=== PATIENT | female | born 2000 | race Caucasian/White ===

== ENCOUNTER 2023-01-31 08:33 | Outpatient (CLI) | payer OTHER, SELFPAY | END 2023-01-31 08:34 | disposition home or self-care (01) | PROVIDERS: Visit Provider Registered Nurse | DX: E66.01 Morbid (severe) obesity due to excess calories (principal); N94.6 Dysmenorrhea, unspecified; Z13.1 Encounter for screening for diabetes mellitus | CPT/HCPCS: 82670; 83001; 83498; 84146; 84403; 84443; 84703 ==

== ENCOUNTER 2023-07-08 12:45 | Outpatient (CLI) | payer OTHER, SELFPAY ==
--- NOTE | 2023-07-08 13:00 | CRLHL7_ITS ---
For Patients: As a result of the Century Cures Act, medical imaging exams and procedure reports are released immediately into your electronic medical record. You may view this report before your referring provider. If you have questions, please contact your health care provider. INDICATION: First trimester scan, establish dates. COMPARISON: None. TECHNIQUE: Real-time banks-scale imaging of the pelvis was performed. FINDINGS: Intrauterine gestational sac is present measuring 6.0 millimeters, 5 weeks 1 day. No pole or yolk sac. Subchorionic hemorrhage measuring 10 x 2 x 10 millimeters. Corpus luteal cyst right ovary measuring 2.2 x 1.8 x 2.1 cm. Normal left ovary. No pelvic free fluid. IMPRESSION: Intrauterine gestational sac measuring 5 weeks 1 day. No pole or yolk sac. 1 cm fundal subchorionic hemorrhage. Sonographic findings are not concordant with the clinical age of 9 weeks 4 days. Follow-up in 2-3 weeks may be helpful as indicated. Dictated by Luke Arizmendi MD @ 07/09/2023 10:08:47 AM (Electronically Signed)
== END 2023-07-08 12:46 | disposition home or self-care (01) ==
LOC: US 12:46
PROVIDERS: Visit Provider Registered Nurse
DX: Z34.91 Encounter for supervision of normal pregnancy, unspecified, first trimester (principal); O20.9 Hemorrhage in early pregnancy, unspecified; Z3A.09 9 weeks gestation of pregnancy
CPT/HCPCS: 76817; 84702; 86850; 86900; 86901

== ENCOUNTER 2023-07-10 08:30 | Outpatient (CLI) | payer OTHER, SELFPAY | END 2023-07-10 08:31 | disposition home or self-care (01) | LOC: NFLDREF 07-14 06:49 | PROVIDERS: Visit Provider Registered Nurse | DX: Z34.90 Encounter for supervision of normal pregnancy, unspecified, unspecified trimester (principal) | CPT/HCPCS: 84702 ==

== ENCOUNTER 2023-07-22 13:40 | Outpatient (CLI) | payer OTHER, SELFPAY ==
--- NOTE | 2023-07-22 14:00 | CRLHL7_ITS ---
For Patients: As a result of the Cures Act, medical imaging exams and procedure reports are released immediately into your electronic medical record. You may view this report before your referring provider. If you have questions, please contact your health care provider. INDICATION: First trimester scan, establish dates. TECHNIQUE: Real-time banks-scale imaging of the pelvis was performed. FINDINGS: Sonographic imaging demonstrates a single living intrauterine gestation. The embryo demonstrates a regular cardiac rate measuring 125 beats per minute. The embryo`s crown-rump length measurement of 0.8 cm corresponds to a gestational age of 6 weeks 5 days with a sonographic due date of 03/11/24. There is a normal-appearing yolk sac. IMPRESSION: Normal first trimester OB ultrasound exam. Gestational age calculated at 6 weeks 5 days with a sonographic due date of 03/11. Dictated by Lisette Graf MD @ 07/24/2023 7:20:45 AM (Electronically Signed)
== END 2023-07-22 13:41 | disposition home or self-care (01) ==
LOC: US 13:41
PROVIDERS: Visit Provider Registered Nurse
DX: Z34.91 Encounter for supervision of normal pregnancy, unspecified, first trimester (principal); Z3A.01 Less than 8 weeks gestation of pregnancy
CPT/HCPCS: 76817; 86703; 86706; 86803; 87086; 87340; 87491; 87591

== ENCOUNTER 2023-07-22 14:52 | Outpatient (CLI) | payer OTHER, SELFPAY ==
[2023-07-22 22:47] LABS: Chlamydia DNA Amplified* NOT DETECTED (No Detected); GC DNA Amplified* NOT DETECTED (No Detected)
== END 2023-07-22 14:53 | disposition home or self-care (01) ==
PROVIDERS: Visit Provider Registered Nurse
DX: Z34.91 Encounter for supervision of normal pregnancy, unspecified, first trimester (principal); Z3A.01 Less than 8 weeks gestation of pregnancy
CPT/HCPCS: 86592; 86703; 86704; 86706; 86762; 86787; 86803; 87086; 87340; 87491; 87591

== ENCOUNTER 2023-10-08 14:03 | Outpatient (CLI) | payer OTHER, SELFPAY | END 2023-10-08 14:04 | disposition home or self-care (01) | LOC: NFLDREF 14:04 | PROVIDERS: Visit Provider Registered Nurse | DX: Z34.92 Encounter for supervision of normal pregnancy, unspecified, second trimester (principal); R00.0 Tachycardia, unspecified; Z3A.17 17 weeks gestation of pregnancy | CPT/HCPCS: 84443 ==

== ENCOUNTER 2023-11-21 15:11 | Outpatient (CLI) | payer OTHER, SELFPAY | END 2023-11-21 15:12 | disposition home or self-care (01) | PROVIDERS: Visit Provider Obstetrics & Gynecology | DX: O16.3 Unspecified maternal hypertension, third trimester (principal) | CPT/HCPCS: 82565; 82570; 84156; 84450; 84460; 84520 ==

== ENCOUNTER 2023-12-19 11:04 | Outpatient (CLI) | payer OTHER, SELFPAY | END 2023-12-19 11:05 | disposition home or self-care (01) | PROVIDERS: Visit Provider Obstetrics & Gynecology | DX: O10.013 Pre-existing essential hypertension complicating pregnancy, third trimester (principal); Z11.3 Encounter for screening for infections with a predominantly sexual mode of transmission | CPT/HCPCS: 82565; 82570; 84156; 84450; 84460; 84520; 84550; 86592 ==

== ENCOUNTER 2023-12-23 13:42 | Outpatient (CLI) | payer OTHER, SELFPAY ==
--- NOTE | 2023-12-23 14:00 | US_ITS ---
Patient: SOHA BOWEN Facility:?[facility] R[facility] Patient ID:?[id number] Site Patient ID:?[id number]. Site :?2002 Study:?US-OB Pelvis BPP w/growth-12/23/2023 2:53:17 PM Ordering Physician:MAC Final Report: INDICATION: Hypertension, check growth. JOMAR by LMP: 07/22/24. GA: 28w, 5d. Single. CERVIX: Not visualized. POSITIONING: Vertex. AMNIOTIC FLUID: 3.2 cm SDP (N: Increase 2 x 1 cm). BIOPHYSICAL PROFILE: Total score: 8/8. Gross body movements: 2. tone: 2. Respiratory activity: 2. Amniotic fluid: 2 (SDP N: Increase 2 x 1 cm). PLACENTA: Technique: Transabdominal. PLACENTA POSITION: Anterior. DOPPLER: heart rate: 152 bpm. Biometry: BPD: 7.9 cm, 31w, 5d, >97percent. HC: 28.8 cm, 31w, 4d, 92 percent. AC: 25.9 cm, 30w, 0d, 80 percent. FL: 5.5 cm, 29w, 1d, 48 percent. FL/AC ratio: 21 percent. HC/AC ratio: 1.1. EFW: 1494 g. Weight: 3 lbs, 5 oz. age by this US: 30w, 4d. JOMAR by this US: 02/27/24. Percentile by JOMAR: 84 percent. IMPRESSION: 1. Normal biophysical profile score of 8/8. 2. Estimated weight is 84th percentile. 3. BPD greater than 97th percentile. Head circumference 92nd percentile. Flo Fall M.D. Body/Diagnostic Radiologist [email or web address] MADAN/miguel D& Transcribed: 12:17 p.m. SP/Dictated by: Flo Fall MD @ 12/24/2023 9:09:00 AM Signed by:Lovely Fall MD @12/24/2023 12:25:59 PM (Electronic Signature)
== END 2023-12-23 13:43 | disposition home or self-care (01) ==
LOC: US 13:43
PROVIDERS: Visit Provider Obstetrics & Gynecology
DX: O10.913 Unspecified pre-existing hypertension complicating pregnancy, third trimester (principal); Z3A.28 28 weeks gestation of pregnancy
CPT/HCPCS: 76816; 76819

== ENCOUNTER 2024-01-16 13:46 | Outpatient (CLI) | payer OTHER, SELFPAY ==
--- NOTE | 2024-01-16 14:00 | US_ITS ---
Patient: SOHA BOWEN Facility:?[facility] RIS Patient ID:?[id number] Site Patient ID:?[id number]. Site :?2002 Study:?US-OB Pelvis OB F/U and BPP-01/16/2024 2:49:12 PM Ordering Physician:Kath Arriaga Final Report: INDICATION: Hypertension TECHNIQUE: Real time banks scale imaging of the fetus was performed. COMPARISON: 12/23/2023 FINDINGS: Sonographic imaging demonstrates a single living intrauterine gestation. Fetus demonstrates a regular cardiac rate of 154 beats per minute. Fetus has a vertex position. The placenta lies anteriorly. Amniotic fluid volume appears normal and there is a single deepest pocket of 5.5 cm. The estimated weight is 2501gm which lies at the greater than 97th %. On the prior OB ultrasound dated 12/23/2023 the estimated weight was at the 84th percentile. BPD greater than 97th percentile. HC 95th percentile. AC 96th percentile. FL 95th percentile. The fetus was active and demonstrated normal breathing movements. There was normal flexion and extension of the trunk and extremities. IMPRESSION: Normal biophysical profile score 8/8. Sonographic gestational age 35 weeks 0 days and a sonographic due date of 02/20/2024. Sonographic age 20 days ahead of the clinical age. Estimated weight greater than 97th percentile. Abdominal circumference 96th percentile. BPD greater than 97th percentile. Dictated by Luke Arizmendi MD @ 01/19/2024 6:29:07 AM Signed by:?Luke Arizmendi MD @01/19/2024 6:29:07 AM (Electronic Signature)
== END 2024-01-16 13:47 | disposition home or self-care (01) ==
LOC: US 13:46
PROVIDERS: Visit Provider Obstetrics & Gynecology
DX: O16.3 Unspecified maternal hypertension, third trimester (principal); O36.63X0 Maternal care for excessive fetal growth, third trimester, not applicable or unspecified; Z3A.35 35 weeks gestation of pregnancy
CPT/HCPCS: 76816; 76819

== ENCOUNTER 2024-02-01 20:16 | Outpatient (CLI) | payer OTHER, SELFPAY ==
[2024-02-01 20:37] VITALS: BP 123/71; PULSE 101
[2024-02-01 20:38] VITALS: PULSE 107; O2SAT 98
[2024-02-01 20:43] VITALS: PULSE 107; O2SAT 98
[2024-02-01 20:54] VITALS: BP 117/62; PULSE 99
[2024-02-01 21:08] VITALS: BP 118/57; PULSE 96
[2024-02-01 21:23] VITALS: BP 113/58; PULSE 99
--- NOTE | 2024-02-01 22:24 | PC.OBNST ---
NST Note NST Note Start: 02/01/24 20:12 Freq: ONCE Status: Active Protocol: Document 02/01/24 22:23 BRISA (Rec: 02/01/24 22:24 BRISA [id number]) NST Note 1 Para (# of births) 0 EDC 03/11/24 Gestational Age In Weeks & Days 34 Weeks & 3 Days Patient Presented with Complaint(s) of Decreased movement,Other Other Complaints BP 140/90 at home. Reactive Yes RN Maru Elmore RN Date 02/01/24 Reactive Yes CRISSY Rider RN Date 02/01/24 OB NST charge Yes Complete NST Note via Write Note Yes The provider's electronic signature indicates the NST is reactive/appropriate for gestational age. *Note to provider: If an addendum is required, open the patient's chart and click on the note under the Nurse/Allied Health tab.
== END 2024-02-01 21:45 | disposition home or self-care (01) ==
LOC: OB OUT 20:17 → OB 20:17
PROVIDERS: Visit Provider Obstetrics & Gynecology
DX: O36.8130 Decreased fetal movements, third trimester, not applicable or unspecified (principal); Z3A.34 34 weeks gestation of pregnancy
CPT/HCPCS: 59025; G0463

== ENCOUNTER 2024-02-10 17:29 | Outpatient (CLI) | payer OTHER, SELFPAY ==
[2024-02-10] VITALS (29 sets, daily range): BP systolic 118–127; BP diastolic 62–73; PULSE 103–125; RESP 18; TEMP 36.8; O2SAT 92–97
[2024-02-10 18:26] LABS: Appearance Urine Cloudy (Clear); Bilirubin Urine Negative (Negative); Blood Urine 1+ (Negative); Color Urine Yellow (Yellow); Glucose Urine Negative (Negative); Ketones Urine Negative (Negative); Leukocyte Esterase Urine Trace (Negative); Nitrite Urine Negative (Negative); Protein Urine Trace (Negative); Urobilinogen Urine 0.2 (0.2-1.0)
--- NOTE | 2024-02-10 18:44 | US_ITS ---
Patient: SOHA BOWEN Facility:?[facility] Patient ID:?[id number] Site Patient ID:?[id number]. Site :?2002 Study:?US-OB Pelvis LIMITED-02/10/2024 7:46:14 PM Ordering Physician:?TITI RATIS Final Report: Indication: Possible rupture of membranes Technique: Targeted sonographic evaluation of the uterus. Comparison: OB ultrasound 01/16/2024 Findings/Impression : Targeted sonographic evaluation of the uterus demonstrates a single live intrauterine gestation with a regular heart rate of 137 beats per minute. The ALCIDES is 11.5 cm, which is within normal limits. No evidence for rupture of membranes. Dictated by Kareem Bedoya MD @ 02/10/2024 8:31:06 PM Signed by:?Kareem Bedoya MD @02/10/2024 8:31:06 PM (Electronic Signature)
[2024-02-10 18:49] LABS: Amnisure Rom* Negative
[2024-02-10 19:16] LABS: Amorphous Sediment Urine Few; Bacteria Urine Moderate; Calcium Oxalate Crystals Urine Moderate; RBC Urine 0-2 (0-2); Squamous Epithelial Cell Urine Many (None-Few); WBC Urine 0-2 (0-5)
--- NOTE | 2024-02-10 19:42 | PC.OBNST ---
NST Note NST Note Start: 02/10/24 17:38 Freq: ONCE Status: Active Protocol: Document 02/10/24 19:40 ALFONSO (Rec: 02/10/24 19:42 JRMagali [id number]) NST Note 1 Para (# of births) 0 EDC 03/11/24 Gestational Age In Weeks & Days 35 Weeks & 5 Days High Risk Factors High Blood Pressure - Preexisting Patient Presented with Complaint(s) of Contractions/cramping,Leaking fluid Reactive Yes Appropriate for Gestational Age Yes CRISSY Howe RN Date 02/10/24 Reactive Yes Appropriate for Gestational Age Yes CRISSY Gracia RN OB NST charge Yes Complete NST Note via Write Note Yes The provider's electronic signature indicates the NST is reactive/appropriate for gestational age. *Note to provider: If an addendum is required, open the patient's chart and click on the note under the Nurse/Allied Health tab.
[2024-02-11 15:10] LABS: Strep B DNA Probe POSITIVE (Negative)
[2024-02-11 15:38] LABS: Strep B Susceptibility Needed? No
== END 2024-02-10 19:45 | disposition home or self-care (01) ==
LOC: OB OUT 17:29 → OB 17:30
PROVIDERS: Visit Provider Obstetrics & Gynecology
DX: O47.03 False labor before 37 completed weeks of gestation, third trimester (principal); O10.913 Unspecified pre-existing hypertension complicating pregnancy, third trimester; Z3A.35 35 weeks gestation of pregnancy
CPT/HCPCS: 59025; 76815; 81001; 81003; 84112; 87081; 87086; 87653; G0463

== ENCOUNTER 2024-02-12 09:02 | Outpatient (CLI) | payer OTHER, SELFPAY ==
--- NOTE | 2024-02-12 09:15 | US_ITS ---
Patient: SOHA BOWEN Facility:?[facility] R[facility] Patient ID:?[id number] Site Patient ID:?[id number]. Site :?2002 Study:?US-OB Pelvis OB BPP & F/U GROWTH-02/12/2024 10:04:33 AM Ordering Physician:?LOULOU JUAREZ M.D. Final Report: INDICATION: HTN, Obesity TECHNIQUE: Real time banks scale imaging of the fetus was performed. COMPARISON: 02/10/2024 FINDINGS: Sonographic imaging demonstrates a single living intrauterine gestation. Fetus demonstrates a regular cardiac rate of 155 beats per minute. Fetus has a vertex position. The placenta lies anteriorly. Amniotic fluid volume single deepest pocket of 9.5 cm. ALCIDES 15.9 cm. The estimated weight is 3803gm which lies at the greater than 97th %. On the prior OB ultrasound dated 01/16/2024 the estimated weight was at the greater than 97th percentile. BPD, HC, AC greater than 97th percentile. FL 49th percentile. The fetus was active and demonstrated normal breathing movements. There was normal flexion and extension of the trunk and extremities. IMPRESSION: Normal biophysical profile score 8/8. Sonographic gestational age 39 weeks 1 day and sonographic due date of 02/18/2024. Sonographic age 22 days ahead of the clinical age. Estimated weight greater than 97th percentile. BPD, HC, AC greater than 97th percentile. Dictated by Luke Arizmendi MD @ 02/12/2024 12:59:25 PM Signed by:?Luke Arizmendi MD @02/12/2024 12:59:25 PM (Electronic Signature)
== END 2024-02-12 09:03 | disposition home or self-care (01) ==
LOC: US 09:02
PROVIDERS: Visit Provider Obstetrics & Gynecology
DX: O10.913 Unspecified pre-existing hypertension complicating pregnancy, third trimester (principal); O99.213 Obesity complicating pregnancy, third trimester; Z3A.39 39 weeks gestation of pregnancy
CPT/HCPCS: 76816; 76819

== ENCOUNTER 2024-02-18 12:49 | Outpatient (CLI) | payer OTHER, SELFPAY ==
--- NOTE | 2024-02-18 13:00 | US_ITS ---
Patient: SOHA BOWEN Facility:?[facility] R[facility] Patient ID:?[id number] Site Patient ID:?[id number]. Site :?2002 Study:?US-OB Pelvis BPP-02/18/2024 1:53:37 PM Ordering Physician:Amanda December Final Report: INDICATION: Polyhydramnios COMPARISON: 02/12/2024 TECHNIQUE: Real time banks scale imaging of the fetus was performed. Without non-stress testing. FINDINGS: Sonographic imaging demonstrates a single living intrauterine gestation. Fetus demonstrates a regular cardiac rate of 159 beats per minute. Fetus has a vertex position. The amniotic fluid volume appears normal and there is a single deepest pocket measurement of 5.2 cm. ALCIDES 9.2 cm. The fetus was active and demonstrated normal breathing movements. There was normal flexion and extension of the trunk and extremities. IMPRESSION: Normal biophysical profile score of 8 out of 8. Single deepest pocket 5.2 cm. ALCIDES 9.2 cm. Dictated by Luke Arizmendi MD @ 02/19/2024 9:25:33 AM Signed by:?Luke Arizmendi MD @02/19/2024 9:25:33 AM (Electronic Signature)
== END 2024-02-18 12:50 | disposition home or self-care (01) ==
LOC: US 12:49
PROVIDERS: Visit Provider Physician Assistant
DX: O40.9XX0 Polyhydramnios, unspecified trimester, not applicable or unspecified (principal)
CPT/HCPCS: 76819

== ENCOUNTER 2024-02-18 14:34 | Inpatient (IN) | payer OTHER, SELFPAY ==
[2024-02-18] VITALS (13 sets, daily range): BP systolic 127–148; BP diastolic 65–86; PULSE 97–122; RESP 16–20; TEMP 32–37.1; O2SAT 95–97; BMI 49.4
[2024-02-18 15:46] LABS: Mean Corpuscular HGB Conc 33 gm/dL (32-36); Mean Corpuscular Hemoglobin 28 pg (26-34); Mean Corpuscular Volume 84 fL (80-100); Platelet Count* 241 K/uL (140-440); Red Blood Count 4.31 m/uL (4.00-5.20); White Blood Count* 9.08 K/uL (4.50-11.00)
[2024-02-18 15:48] LABS: Slide Review Reflex No
[2024-02-18 16:03] LABS: Total Protein Urine 15 mg/dL
[2024-02-18 16:03] LABS: Alanine Aminotransferase* 27 U/L (4-35); Aspartate Amino Transferase* 32 U/L (12-35); Blood Urea Nitrogen* 8 mg/dL (5-24); Creatinine* 0.5 mg/dL (0.5-1.5); Est. Creatinine Clearance* 166.62; Estimated Glomerular Filt Rate 137 ml/min
--- NOTE | 2024-02-18 16:14 | P.LDBA_ITS ---
Subjective History of Present Illness Narrative: Patient is being admitted to Labor and Delivery for []. She is a 23 year old at weeks gestation. Her full history and physical was dictated by [] on []. Please see this for details. [] Specific Issues/Plans G 1 P 0 : Shree. Baby: Girl! Sean #Chronic HTN (stage I prior to ), with possible gestational exacerbation * Baseline labs normal, with AST, ALT, BUN and Cr normal on 11/21 * Elevated BP at 28 weeks: 152 / 78. Repeat 138/70. * Return to clinic at 29 weeks for US for EFW, BPP, and repeat BP, to determine if treatment necessary. * 29 weeks 12/23/23:Vtx, SDP 3.18cm. BPP 8/8. EFW 1494 g, 3 lb 5 oz, 84%. HC 93% BPD > 97%, AC 80%, FL 48%. * Weekly NSTs are currently ordered, but may discontinue until 32 weeks if BPs normal #BMI 46.1 A1C 5.2% Declines nutrition referral. 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 Anesthesia referral completed Early GDM testing 16-20 weeks: passed. Repeat at 28 weeks: negative BPP and/or NST starting at 32 weeks Growth US 32-36 weeks Level 2 US 10/20/2023: No anomalies seen. Growth parameters consistent with established dates. Amniotic fluid normal. Cervix appears long and closed. Follow-up US with [facility] 12/01/23: Normal fluid, EFW 46%, AC 67%, normal anatomy. [facility] recommendations: * Growth ultrasound at 28 and 34 weeks: ordered for 29 weeks * Weekly testing starting at 34 weeks (currently ordered for 30 weeks as above) #Declines pap at first OB. Plan for pap. #Varicella nonimmune. Recommend vaccine. #Ongoing tachycardia. CBC, TSH, EKG on 10/08/23. EKG: sinus tachy, otherwise normal. Hgb: 12.5. TSH: 1.38. Consider cardiology referral if she becomes symptomatic. #Suspected macrosomia. EFW >97% at 32 weeks. Testing negative for GDM. * 36 weeks: BPD >97%, HC >97%, AC >97%, FL 49.3%, EFW >97%, 3803g, 8#6oz # GBS positive # mild polyhydramnios by SDP, 9.5 cm. ALCIDES 15.91 cm * BPP with the ALCIDES at 37 weeks: Ultrasounds: 01/16/24 = 32 weeks: cephalic, SDP 5.5, BPP 8/8, EFW 2501 g > 97%, BPD >97%, HC 95%, AC 95.7%, FL 94.5%. Covid: completed, not up to date with booster. Recommended. Declines Flu: never gets flu vaccine due to egg allergy. TDAP: 01/01/2024 Mat 21: Negative, girl! OB Exam Physical Exam Vital signs: Temp Pulse Resp BP Pulse Ox 89.6 F L 116 H 16 145/86 H 96 02/18/24 15:01 02/18/24 15:01 02/18/24 15:01 02/18/24 15:01 02/18/24 15:02
[2024-02-18] MEDS: MORPHINE 10 MG/ML inj IM (19:21)
[2024-02-18] MEDS: hydrOXYzine pamoate 25 MG CAPSULE 100 MG PO (19:22)
[2024-02-18] MEDS: LACTATED RINGERS 1000 ML 1,000 ML 125 ML IV (21:10)
--- NOTE | 2024-02-18 21:14 | P.OBHP_ITS ---
OB - H&P: HPI Labor/Induction History of Present Illness Date Seen: 02/18/24 Chief Complaint: Anabela is a 23yo at 36w6d GA admitted from clinic in the setting of chronic HTN exacerbation. is complicated by chronic HTN, polyhydramnios (resolved on US today), class 3 obesity and tachycardia. On arrival to clinic, she was noted to have elevated BP. Home log revealed 50% of values in the last one week above goal of 140/90mmHg. As such, I would recommend initiation of anti-hypertensive regimen where she would meet criteria for IOL now for chronic HTN on medications. Transferred to center to start IOL with cervical ripening, BP monitoring and preE labs. She has no headache, vision changes or RUQ pain. Denies worsening edema. No regular/painful contractions, vaginal bleeding or leaking of fluids. Endorses active movement. Chief complaint: Maternity Narrative: Anabela Kapadia is a 23 year old female Specific Issues/Plans G 1 P 0 : Shree. Baby: Girl! Sean #Chronic HTN (stage I prior to ), with possible gestational exacerbation * Baseline labs normal, with AST, ALT, BUN and Cr normal on 11/21 * Elevated BP at 28 weeks: 152 / 78. Repeat 138/70. * Return to clinic at 29 weeks for US for EFW, BPP, and repeat BP, to determine if treatment necessary. * 29 weeks 12/23/23:Vtx, SDP 3.18cm. BPP 8/8. EFW 1494 g, 3 lb 5 oz, 84%. HC 93% BPD > 97%, AC 80%, FL 48%. * Weekly NSTs are currently ordered, but may discontinue until 32 weeks if BPs normal #BMI 46.1 A1C 5.2% Declines nutrition referral. 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 Anesthesia referral completed Early GDM testing 16-20 weeks: passed. Repeat at 28 weeks: negative BPP and/or NST starting at 32 weeks Growth US 32-36 weeks Level 2 US 10/20/2023: No anomalies seen. Growth parameters consistent with established dates. Amniotic fluid normal. Cervix appears long and closed. Follow-up US with [facility] 12/01/23: Normal fluid, EFW 46%, AC 67%, normal anatomy. [facility] recommendations: * Growth ultrasound at 28 and 34 weeks: ordered for 29 weeks * Weekly testing starting at 34 weeks (currently ordered for 30 weeks as above) #Declines pap at first OB. Plan for pap. #Varicella nonimmune. Recommend vaccine. #Ongoing tachycardia. CBC, TSH, EKG on 10/08/23. EKG: sinus tachy, otherwise normal. Hgb: 12.5. TSH: 1.38. Consider cardiology referral if she becomes symptomatic. #Suspected macrosomia. EFW >97% at 32 weeks. Testing negative for GDM. * 36 weeks: BPD >97%, HC >97%, AC >97%, FL 49.3%, EFW >97%, 3803g, 8#6oz # GBS positive # mild polyhydramnios by SDP, 9.5 cm. ALCIDES 15.91 cm * BPP with the ALCIDES at 37 weeks: normal Ultrasounds: 01/16/24 = 32 weeks: cephalic, SDP 5.5, BPP 8/8, EFW 2501 g > 97%, BPD >97%, HC 95%, AC 95.7%, FL 94.5%. Covid: completed, not up to date with booster. Recommended. Declines Flu: never gets flu vaccine due to egg allergy. TDAP: 01/01/2024 Mat 21: Negative, girl! Meds Home Medications and Allergies Home Medications ?Medication ?Instructions ?Recorded ?Confirmed ?Type docosahexaenoic acid 200 mg 200 mg PO DAILY 07/08/23 02/18/24 History capsule ( DHA) magnesium citrate 125 mg capsule 125 mg PO ONCE 07/08/23 02/18/24 History aspirin 81 mg capsule 81 mg PO QDAY 09/17/23 02/18/24 History melatonin 10 mg capsule 10 mg PO ONCE PRN 09/17/23 02/18/24 History calcium carbonate (Tums) 200 mg PO BID 12/23/23 02/18/24 History Allergies Allergy/AdvReac Type Severity Reaction Status Date / Time poultry Allergy Severe numbness Uncoded 02/12/24 10:11 and vomitting OB - H&P: Exam Physical Exam: Vital signs: Temp Pulse Resp BP Pulse Ox 98.4 F 97 20 127/76 96 02/18/24 20:11 02/18/24 20:11 02/18/24 20:11 02/18/24 20:11 02/18/24 18:02 Narrative: General: Alert and oriented, in no acute distress Abdomen: Gravid, non-tender Pelvic: Cervix is 1/30/-3, cook catheter placed without difficulty NST: Category 1 EFW by US on 02/11: 3803gm which lies at the greater than 97th %. OB - Results Labs Labs: Short CBC 02/18/24 Range/Units 15:35 WBC 9.08 (4.50-11.00) K/uL Hgb 12.0 (12.0-16.0) gm/dL Hct 36.0 (33.0-51.0) % Plt Count 241 (140-440) K/uL BMP 02/18/24 15:35 BUN 8 Creatinine 0.5 Liver Function 02/18/24 Range/Units 15:35 AST 32 (12-35) U/L ALT 27 (4-35) U/L OB - Problem Based A/P Additional Plan (1) Chronic hypertension affecting : Status: Acute (2) Tachycardia: Status: Acute (3) : Status: Acute (4) Morbid obesity with body mass index (BMI) of 45.0 to 49.9 in adult: Status: Acute Plan Anabela is a 23yo at 36w6d GA admitted for IOL in the setting of chronic HTH exacerbation at term. is complicated by chronic HTN, suspected macrosomia, tachycardia, polyhydramnios (Resolved) and class 3 obesity. BPs have been normal to mild range. She has no headache, vision changes or RUQ pain. Preeclampsia labs on admission were within normal limits. - Admit for medically indicated IOL in the setting of chronic HTN exacerbation, no suspicion for superimposed preeclampsia at this time - Diligent BP and symptom monitoring, repeat preE labs as needed - Cervix is 1/30/-3, s/p cook catheter placement. Plan pitocin titration per protocol overnight. - Offered therapeutic rest PRN overnight - s/p anesthesia consult where early epidural placement is recommended (loading PRN) where she is hopeful to have this placed first thing tomorrow morning - BT A+ - GBS positive, start antibiotics with cook expulsion, SROM or active labor
[2024-02-18] MEDS: OXYTOCIN 30 unit/500 ML in NS 30 UNIT/500 ML BAG IVPB (21:18)
[2024-02-19] VITALS (75 sets, daily range): BP systolic 108–145; BP diastolic 56–89; PULSE 99–144; RESP 16–24; TEMP 36.4–37.1; O2SAT 94–98
[2024-02-19] MEDS: AMPICILLIN 2 GM in 0.9 % SODIUM CHLORIDE Mini-bag 100 ML IVPB (01:54)
[2024-02-19] MEDS: AMPICILLIN 1 GM in 0.9 % SODIUM CHLORIDE Mini-bag 100 ML IVPB ×5 (05:55→22:24)
[2024-02-19] MEDS: LACTATED RINGERS 1000 ML 1,000 ML 125 ML IV (05:56)
--- NOTE | 2024-02-19 10:32 | P.ANBPRC_ITS ---
[facility] Medical History with uncertain viability ?O36.80X0 - with inconclusive viability, not applicable or unspecified (ICD-10) Secondary amenorrhea ?N91.1 - Secondary amenorrhea (ICD-10) Elevated blood pressure reading ?R03.0 - Elevated blood-pressure reading, without diagnosis of hypertension (ICD-10) Dysmenorrhea ?N94.6 - Dysmenorrhea, unspecified (ICD-10) Surgical History History of placement of ear tubes ?Z96.22 - Myringotomy tube(s) status (ICD-10) History of tonsillectomy ?Z90.89 - Acquired absence of other organs (ICD-10) Family History Father High cholesterol High blood pressure Crohn's disease Diabetes Family/Other Heart disease Diabetes Social History What is your current living situation?: I presently have a place to live Problems where you live: no known problems In the past 12 months, utilities in danger of being shut off: no In past 12 months, lack of transportation kept you from medical appts, meetings, work, or getting things needed for daily living: no In the past 12 mos, have been you worried that your food would run out before you had money to buy more?: never true In the past 12 mos, the food you bought just didn't last and you didn't have money to buy more?: never true Smoking Status: Never smoker How often does anyone, including family, friends and others, physically hurt you : never How often does anyone, including family, friends and others, insult or talk down to you: never How often does anyone, including family, friends and others, threaten you with harm: never How often does anyone, including family, friends and others, scream or curse at you: never Little interest or pleasure in doing things: not at all Feeling down, depressed, or hopeless: not at all Meds Home Medications and Allergies Home Medications ?Medication ?Instructions ?Recorded ?Confirmed ?Type docosahexaenoic acid 200 mg 200 mg PO DAILY 07/08/23 02/18/24 History capsule ( DHA) magnesium citrate 125 mg capsule 125 mg PO ONCE 07/08/23 02/18/24 History aspirin 81 mg capsule 81 mg PO QDAY 09/17/23 02/18/24 History melatonin 10 mg capsule 10 mg PO ONCE PRN 09/17/23 02/18/24 History calcium carbonate (Tums) 200 mg PO BID 12/23/23 02/18/24 History Allergies Allergy/AdvReac Type Severity Reaction Status Date / Time poultry Allergy Severe numbness Uncoded 02/12/24 10:11 and vomitting Results Labs Labs: Laboratory Results - last 24 hr 02/18/24 02/18/24 02/18/24 15:35 15:36 15:47 WBC 9.08 RBC 4.31 Hgb 12.0 Hct 36.0 MCV 84 MCH 28 MCHC 33 Plt Count 241 BUN 8 Creatinine 0.5 Estimated Creat Clear 166.62 Estimated GFR 137 AST 32 ALT 27 Urine Creatinine 198.0 Protein/Creatinin Ratio 0.00 Urine Total Protein 15 Blood Type A Positive Antibody Screen NEGATIVE Vital Signs Vital Signs: Last Vital Signs Temp 98.3 F 02/19/24 07:23 Pulse 113 H 02/19/24 10:25 Resp 16 02/19/24 07:23 BP 139/85 02/19/24 10:25 Pulse Ox 97 02/19/24 10:27 Weight: 138.799 kg Height: 167.64 cm Anesthesia Procedures Epidural Insertion Patient Location: OB Start Time: 09:52 Stop Time: 10:33 Start Date: 02/19/24 Stop Date: 02/19/24 Reason for Block: procedure for pain Patient Position: sitting Performed By: Lj Walter Preanesthetic Checklist: IV checked, risks and benefits discussed, monitors and equipment checked, pre-op evaluation, timeout performed and anesthesia consent Prep: chlorhexidine gluconate Monitoring: blood pressure monitoring, continuous pulse oximetry and heart rate Approach: midline Vertebral Space: lumbar (1-5) Epidural Technique: NATHALIE saline Needle Type: Tuohy needle Injection Technique: continuous catheter Needle gauge: 17 Needle Length (cm): 10 cm Needle Insertion Depth (cm): 9 Catheter Gauge: 19 Catheter Type: multi-orifice Catheter at skin depth (cm): 16 Test Dose Result: negative and lidocaine 1.5% with epinephrine 1 to 200,000
[2024-02-19] MEDS: ROPIVACAINE 0.2% 100 ml 100 ML 12 MG EPIDURAL ×2 (12:01→18:12)
[2024-02-19] MEDS: LIDOCAINE 2% (PF) 5 ML VIAL EPIDURAL (12:01)
[2024-02-19] MEDS: LACTATED RINGERS 1000 ML 1,000 ML 115 ML IV ×2 (12:28→22:24)
--- NOTE | 2024-02-19 12:45 | PM.OBPNL ---
Subjective Time Seen by Provider: 11:00 Date Seen: 02/19/24 Narrative: Anabela is a 23-year-old woman at 37 weeks, 0 days gestation here for induction of labor for chronic hypertension with gestational exacerbation, in the setting of recent polyhydramnios and BMI of 46. She is GBS positive, and has been receiving antibiotics. She has received more than 2 doses. She had Cook catheter for cervical ripening overnight. I first examined her cervix a couple hours ago. At that time, she requested that I wait until after she had epidural catheter placed for rupture of membranes. At that time, she was 5 cm / 80 / -1 station. This was then done. Right now, she reports some numbness and tingling in her right leg. She is otherwise doing ok. Objective Vital Signs: Last Vital Signs Temp 97.6 F 02/19/24 12:14 Pulse 108 H 02/19/24 12:28 Resp 16 02/19/24 12:14 BP 128/79 02/19/24 12:28 Pulse Ox 97 02/19/24 12:29 Comments: Abdomen soft, nontender, gravid, pannus hanging over lower abdomen Cervix: 5 cm, 80%, 0 station. AROM for clear fluid. tracing: Baseline 130, accelerations present, no decelerations, moderate variability. Contractions every 3 minutes. Pitocin augmentation continues HELLP labs entirely normal at admission yesterday Assessment Assessment: early labor Amniotic Membrane Status: SROM Status: Category l Tracing Comments: Category 1 tracing, reassuring Labor Progress: Cervix now quite favorable. On the verge of entering active labor. Maternal Status: Blood pressures are stable, normal to minimally elevated. Plan Plan: Continue with monitoring Continue Pitocin augmentation. Epidural dosing as desired
--- NOTE | 2024-02-19 14:46 | PM.OBPNL ---
Subjective Date Seen: 02/19/24 Narrative: Anabela is a 23-year-old woman at 37 weeks, 0 days gestation here for induction of labor for chronic hypertension with gestational exacerbation, in the setting of recent polyhydramnios and BMI of 46. She is GBS positive, and has been receiving antibiotics. She has received more than 2 doses. She had Cook catheter for cervical ripening overnight. She has had pitocin for induction of labor. Since our last exam, she has had epidural dosed. She is still struggling with discomfort. Depending on her position, we are sometimes unable to track her contractions or HR externally. Objective Vital Signs: Last Vital Signs Temp 97.9 F 02/19/24 14:41 Pulse 116 H 02/19/24 14:45 Resp 16 02/19/24 14:41 BP 126/71 02/19/24 14:45 Pulse Ox 97 02/19/24 12:29 Comments: Gen - flushed, teary Cervix: 5 cm, 80%, 0 station. No change since last exam. AROM for clear fluid at 1100. tracing: Baseline 130, accelerations present, no decelerations, moderate variability. Contractions not tracing Pitocin at 11 mU/min HELLP labs entirely normal at admission yesterday Assessment Assessment: early labor Amniotic Membrane Status: SROM Status: Category l Tracing Comments: Category 1 tracing, reassuring Labor Progress: Still latent phase, with no change in cervix in last few hours. Maternal Status: Blood pressures are stable, normal to minimally elevated. Plan Plan: Continuous monitoring. After verbal consent, scalp electrode placed. Continue Pitocin augmentation. After verbal consent, IUPC placed with aseptic technique.
[2024-02-19] MEDS: ONDANSETRON 2 MG/ML inj 4 MG IV (22:39)
[2024-02-20] VITALS (14 sets, daily range): BP systolic 112–140; BP diastolic 54–90; PULSE 72–129; RESP 16–20; TEMP 36.2–36.8; O2SAT 95–98
--- NOTE | 2024-02-20 00:20 | W.PM.VAGDEL1 ---
Procedure Delivery date: 02/19/24 Procedure Done: [employer] Procedure Details: The patient is a 23 year-old G 1 P 0 admitted on 02/18/2024 at 36 Weeks, 6 Days gestation for cervical ripening prior to induction of labor for indication of gestational exacerbation of chronic hypertension.? Cervical exam on admission was 1 cm/30 % effaced/-3 station with membranes intact in vertex presentation.? heart rate demonstrated a category 1 tracing.? C had Cook catheter placed for cervical ripening overnight her 1st hospital night. She then had Pitocin for induction of labor. AROM occurred at 10:51 a.m. on 02/19/2024 with clear fluid. ? Labor Analgesia:? Epidural ? Pitocin:? Yes ? Labor onset:? 6:00 p.m. on 02/19/2024 ? Complete:? 11:15 p.m. ? Pushing:? 11:15 p.m. ? heart tones during second stage were reassuring until , at which point there was a bradycardia into the 50s. ? At 11:52 p.m. a viable female delivered in vertex JENNA presentation with restitution to LOT over small second-degree perineal laceration via spontaneous vaginal delivery.? Infant was placed on maternal abdomen.? Cord was clamped and cut after approximately 30 seconds.? Nose and mouth were bulb suctioned.? weight pending.? 7 at 1 minute and 9 at 5 minutes.? Shoulder dystocia: No.? Nuchal cord: Yes, loose, reduced. ? Placenta delivered spontaneously and complete at 12:06 a.m. on 02/20/2024 with a 3 vessel cord. ? Mother and infant were stable after delivery. ? Lacerations:? Second-degree perineal, repaired with 2-0 Vicryl in a running fashion after infiltration with approximately 12 mL of 1% lidocaine. ? Blood loss: 300 mL. Blood loss measurement type: QBL ? Sponge and needles counts are correct.
[2024-02-20] MEDS: OXYTOCIN 30 unit/500 ML in NS 30 UNIT/500 ML BAG 300 UNIT IVPB (00:46)
[2024-02-20] MEDS: IBUPROFEN 600 MG TABLET PO ×4 (01:22→21:35)
[2024-02-20] MEDS: ACETAMINOPHEN 500 MG TABLET 1000 MG PO ×3 (04:11→23:36)
[2024-02-20 07:07] LABS: Basophils Percent Auto 0.1 % (0.0-3.0); Eosinophils Percent Auto 0.4 % (0.0-7.0); Hemoglobin* 11.8 gm/dL (12.0-16.0); Immature Granulocytes Pct Auto 0.1 %; Lymphocytes Percent Auto 8.9 % (20-44); Mean Corpuscular HGB Conc 33 gm/dL (32-36); Mean Corpuscular Hemoglobin 28 pg (26-34); Mean Corpuscular Volume 85 fL (80-100); Monocytes Percent Auto 9.3 % (0.0-11.0); Neutrophils Percent Auto 81.2 % (42.0-72.0); Platelet Count* 238 K/uL (140-440); RDW Coefficient of Variation % 15.1 % (11.5-15.5); Red Blood Count 4.26 m/uL (4.00-5.20); White Blood Count* 15.55 K/uL (4.50-11.00)
[2024-02-20 07:20] LABS: Slide Review Reflex No
[2024-02-20 07:25] LABS: Creatinine* 0.5 mg/dL (0.5-1.5); Est. Creatinine Clearance* 166.62; Estimated Glomerular Filt Rate 137 ml/min
[2024-02-20 07:26] LABS: Alanine Aminotransferase* 27 U/L (4-35); Aspartate Amino Transferase* 32 U/L (12-35); Blood Urea Nitrogen* 8 mg/dL (5-24)
--- NOTE | 2024-02-20 07:49 | PM.OBPNVD1 ---
OB - PN:Subj Subjective Date Seen: 02/20/24 Patient comments OB post-: no complaints and pain well controlled [place] infant status: feeding status: exclusively Narrative: Anabela is a 23 y.o. who was admitted to [facility] for induction of labor.? She had an uncomplicated NVD.? ?? The patient feels well.? The pain is well controlled with current medications.? She has no new complaints.? She is breast feeding and reports things are going well.? the patient has done well.? Vitals have been stable.? She has remained afebrile.? Has a good appetite, is tolerating a general diet.? She is voiding without difficulty.? She is passing gas and has not had a bowel movement.? She is ambulating and denies any dizziness.? Has Small amount of rubra lochia.? OB - PN: Obj Exam Physical Exam: Vital signs: Temp Pulse Resp BP Pulse Ox O2 Del Method 97.5 F L 97 20 121/84 95 Room Air 02/20/24 06:56 02/20/24 06:56 02/20/24 06:56 02/20/24 06:56 02/20/24 06:56 02/20/24 06:56 Narrative: GENERAL APPEARANCE:? normal affect, alert, no distress? MOOD:? appropriate? HEENT: normocephalic, neck supple, full ROM? CHEST:? Symmetrical chest wall movement.? Normal respiratory effort.? Clear to auscultation ? HEART:? regular rate and rhythm? ABDOMEN:? soft, non-tender. Uterine fundus is firm, at Umbilicus, Midline and is appropriate for the stage of recovery.? Bowel sounds present.? PERINEUM:? mild edema of the perineum.? EXTREMITIES:? normal and no edema? OB - PN: Obj Data Labs Labs: Laboratory Results - last 24 hr 02/20/24 06:50 WBC 15.55 H RBC 4.26 Hgb 11.8 L Hct 36.0 MCV 85 MCH 28 MCHC 33 RDW Coeff of [place] 15.1 Plt Count 238 Neut % (Auto) 81.2 H Lymph % (Auto) 8.9 L [place] % (Auto) 9.3 Eos % (Auto) 0.4 Baso % (Auto) 0.1 Neut # (Auto) 12.60 H Lymph # (Auto) 1.40 Union # (Auto) 1.40 H Eos # (Auto) 0.10 Baso # (Auto) 0.00 Abs Immat Gran (auto) 0.00 Imm/Tot Granulo (auto) 0.1 BUN 8 Creatinine 0.5 Estimated Creat Clear 166.62 Estimated GFR 137 AST 32 ALT 27 OB - PN: A/P Delivery Assessment and Plan (1) care and examination immediately after delivery: Status: Acute (2) Chronic hypertension affecting : Status: Acute (3) Tachycardia: Status: Acute (4) Morbid obesity with body mass index (BMI) of 45.0 to 49.9 in adult: Status: Acute (5) Lactating mother: Status: Acute Plan day: 1 Plan: routine care Comments: G 1 P 1 status post uncomplicated NVD??? 1.? Continue route PP cares? 2.? .? May see if desired? 3.? Anticipate discharge home tomorrow? 4. Stable BP's and labs WNL. Continue to monitor per protocol.
[2024-02-20] MEDS: DOCUSATE SODIUM 100 MG CAPSULE PO (08:25)
--- NOTE | 2024-02-20 09:18 | PM.ANPOST ---
Post Anesthesia Note Post Anesthesia Note Patient seen: Inpatient Respiratory Status: adequate Cardiovascular Status: adequate Mental Status: baseline Pain: adequate Temp: baseline Anesthetic awareness: N/A Complications: none Follow care: none
[2024-02-20 18:07] LABS: Rapid Plasma Reagin (RPR) Non Reactive (Non Reactive)
[2024-02-21 01:00] VITALS: BP 122/84; PULSE 99; RESP 18; TEMP 36.4; O2SAT 96
[2024-02-21] MEDS: IBUPROFEN 600 MG TABLET PO (04:16)
[2024-02-21 05:00] VITALS: BP 117/80; PULSE 93; RESP 18; TEMP 36.4; O2SAT 97
[2024-02-21] MEDS: ACETAMINOPHEN 500 MG TABLET 1000 MG PO (06:50)
--- NOTE | 2024-02-21 08:17 | PM.OBDSVD1 ---
DS: Providers Provider Time Seen by Provider: 08:17 Date Seen: 02/21/24 Date of admission: 02/18/24 14:34 Primary care physician: Not a Local Provider Admitting Clinician: Niesha Velez MD Attending Physician on discharge: Niesha Velez MD Date of Discharge: 02/21/24 DS: Diagnosis Discharge Diagnosis (1) Lactating mother: Status: Acute (2) Morbid obesity with body mass index (BMI) of 45.0 to 49.9 in adult: Status: Acute (3) PCOS (polycystic ovarian syndrome): Status: Acute (4) Chronic hypertension with superimposed pre-eclampsia: Status: Acute Problem details: - Diagnosed based on BP above baseline. P/C ratio 0.0 on 02/18/24 Exam Narrative: Exam Narrative: Physical exam: General: No acute distress Psych: Alert and oriented x4, full affect HEENT: Normocephalic, atraumatic Heart: Regular rate and rhythm, no murmur rub or gallop Lungs: Clear to auscultation bilaterally Abdomen: Normoactive bowel sounds, soft, no tenderness, rebound, or guarding. Uterus firm 3 cm below umbilicus Skin: No lesions or rashes Lower extremities: +1 bilateral lower extremity edema. Pelvic exam: Scant blood on pad Const: Vital Signs, click to edit/add: Vital Signs - 24 hr 02/20/24 09:21 02/20/24 13:00 02/20/24 17:22 Temperature 97.2 F L 98.0 F 97.5 F L Pulse Rate [Pulse Oximeter] 95 72 100 Respiratory Rate 16 16 18 Blood Pressure [Le ft Arm] 130/90 H 122/81 127/88 Pulse Oximetry 96 98 95 Oxygen Delivery Me thod Room Air Room Air Room Air 02/20/24 21:00 02/21/24 01:00 02/21/24 05:00 Temperature 97.4 F L 97.6 F 97.5 F L Pulse Rate [Pulse Oximeter] 99 99 93 Respiratory Rate 18 18 18 Blood Pressure [Le ft Arm] 126/85 122/84 117/80 Pulse Oximetry 96 96 97 Oxygen Delivery Me thod Room Air Room Air Room Air OB - DS: Summary Hospital Course Hospital Course: The patient is a 23 year old at 37 weeks gestation that was admitted to the Center on 02/18/24 for medical induction of labor due to superimposed pre-eclampsia. She had an uncomplicated vaginal delivery. She delivered a viable female infant. She is breast and bottle feeding. the patient has done well without issues. wer Overnight patient had no complaints. Her pain is well controlled on oral pain medications. She is tolerating a regular diet. She has passed flatus. She is ambulating without difficulty. Lochia is scant. She is urinating without martinez. Patient denies chest pain, SOB, n/v, headache, RUQ pain, vision changes, dizziness. Her BP were normal overnight. PO antihypertensive medication not indicated at this time. She'll have a 1 week BP visit to assess the status of her pre-eclampsia. Time spent discussing smoking cessation with patient: 3 to 10 minutes Infant Gender: Female Time Spent with Patient Time attestation: Total time spent providing and/or coordinating discharge services: Discharge Plan Discharge Disposition: Home, Self-Care Date of Admission: 02/18/24 14:34 Attending Provider on Discharge: Chely Bateman Primary Care Provider: Provider,Not a Local Condition: Stable Anticipated Discharge Date/Time: 02/21/24 08:08 Discharge Medications: New acetaminophen 500 mg Tablet 1,000 mg PO Q6H PRN30 Days Qty: 30 1RF Dermoplast (with menthol) 20-0.5 % Aerosol 1 spray topical QID PRN30 Days Qty: 78 0RF docusate sodium 100 mg Capsule 100 mg PO DAILY 30 Days Qty: 30 0RF ibuprofen 600 mg Tablet 600 mg PO Q6H PRN30 Days Qty: 60 0RF Lanolin (HPA) 100 % Cream 1 applic topical Q1H PRN30 Days Qty: 21 0RF simethicone 80 mg Tablet,Chewable 80 - 160 mg PO Q4H PRN (Reason: gas) 30 Days Qty: 60 0RF Continued DHA 200 mg capsule 200 mg PO DAILY magnesium citrate 125 mg capsule 125 mg PO ONCE melatonin 10 mg capsule 10 mg PO ONCE PRN calcium carbonate [Tums] 200 mg calcium (500 mg) tablet,chewable 200 mg PO BID Discontinued aspirin 81 mg capsule 81 mg PO QDAY Discharge Orders: Discharge Order (Routine); Ordered 02/21/24 Ordered By: Chely Bateman Patient Education: Vaginal Delivery (DC) Activity Detail: Pelvic rest x 6 weeks Discharge Diet: Regular Follow Up Appointments: Provider,Not a Local [Primary Care Provider] - Forms: My[employer] Info Instructions Discharge Comments: Follow up for 1 week BP check (can be RN visit as she is not on any medication), 2 weeks visit, and 6 weeks
[2024-02-21 09:34] VITALS: BP 131/84; PULSE 99; RESP 16; TEMP 36.4; O2SAT 96
[2024-02-21] MEDS: DOCUSATE SODIUM 100 MG CAPSULE PO (09:39)
== END 2024-02-21 12:15 | disposition home or self-care (01) | DRG 807 ==
PROVIDERS: Obstetrics & Gynecology; Admitting Provider Obstetrics & Gynecology; Visit Provider Obstetrics & Gynecology
DX: O11.4 Pre-existing hypertension with pre-eclampsia, complicating childbirth (principal); Z37.0 Single live birth; O10.92 Unspecified pre-existing hypertension complicating childbirth; O99.824 Streptococcus B carrier state complicating childbirth; O40.3XX0 Polyhydramnios, third trimester, not applicable or unspecified; O70.1 Second degree perineal laceration during delivery; O99.214 Obesity complicating childbirth; E66.01 Morbid (severe) obesity due to excess calories; O99.892 Other specified diseases and conditions complicating childbirth; R00.0 Tachycardia, unspecified; O99.284 Endocrine, nutritional and metabolic diseases complicating childbirth; E28.2 Polycystic ovarian syndrome; Z3A.36 36 weeks gestation of pregnancy
CPT/HCPCS: 01967; 36415; 59200; 82565; 82570; 84156; 84450; 84460; 84520; 85025; 85027; 86592; 86850; 86900; 86901; A9270; C1726; J0290; J2270; J2371; J2405; J2795; J7120

== ENCOUNTER 2024-02-25 11:38 | Inpatient (IN) | payer OTHER, SELFPAY ==
[2024-02-25] VITALS (18 sets, daily range): BP systolic 115–146; BP diastolic 75–99; PULSE 84–107; RESP 16–20; TEMP 36.6–37.1; O2SAT 95–100
[2024-02-25] MEDS: NIFEdipine 30 MG TAB.ER.24 PO (11:47)
[2024-02-25 12:10] LABS: Hematocrit 37.3 % (33.0-51.0); Hemoglobin* 12.3 gm/dL (12.0-16.0); Mean Corpuscular HGB Conc 33 gm/dL (32-36); Mean Corpuscular Hemoglobin 28 pg (26-34); Mean Corpuscular Volume 84 fL (80-100); Platelet Count* 358 K/uL (140-440); Red Blood Count 4.42 m/uL (4.00-5.20); White Blood Count* 9.02 K/uL (4.50-11.00)
[2024-02-25] MEDS: MAGNESIUM IV 4 GM/100 ML PIGGYBACK IVPB (12:10)
[2024-02-25] MEDS: LACTATED RINGERS 1000 ML 1,000 ML 75 ML IV (12:10)
[2024-02-25 12:17] LABS: Slide Review Reflex No
[2024-02-25 12:28] LABS: Alanine Aminotransferase* 74 U/L (4-35); Aspartate Amino Transferase* 63 U/L (12-35); Blood Urea Nitrogen* 15 mg/dL (5-24); Creatinine* 0.7 mg/dL (0.5-1.5); Estimated Glomerular Filt Rate 126 ml/min; Uric Acid* 4.2 mg/dL (2.2-8.4)
[2024-02-25] MEDS: MAGNESIUM Infusion 40 GM/1,000 ML IV.SOLN IVPB (12:45)
[2024-02-25] MEDS: ENOXAPARIN 40 MG/0.4 ML INJ SUBCUT (14:05)
--- NOTE | 2024-02-25 15:47 | W.PM.LDBA ---
Subjective History of Present Illness Time Seen by Provider: 12:15 Narrative: Ms. Kapadia is a 23yo seen on day 5 in clinic for BP check. was complicated by chronic HTN exacerbation prompting IOL, obesity, polyhydramnios. She has an uncomplicated on 02/19 and was discharged to home on 02/20. In clinic today with RN BP check, she was noted to have sustained severe range BPs. Patient noted intermittent chest pain over the last few days, absent at present. I was consulted and recommended transfer to Center for admission. Anabela affirms the above history. She denies any headache, vision changes, RUQ or epigastric pain. She has experienced intermittent chest discomfort, exacerbated when walking. Absent at present. Denies dyspnea, dizziness/lightheadedness. She has no other acute concerns. Her and baby Sean are present. Specific Issues/Plans G 1 P 0 : Shree. Baby: Girl! Sean #Chronic HTN (stage I prior to ), with possible gestational exacerbation Baseline labs normal, with AST, ALT, BUN and Cr normal on 11/21 Elevated BP at 28 weeks: 152 / 78. Repeat 138/70. Return to clinic at 29 weeks for US for EFW, BPP, and repeat BP, to determine if treatment necessary. 29 weeks 12/23/23:Vtx, SDP 3.18cm. BPP 8/8. EFW 1494 g, 3 lb 5 oz, 84%. HC 93% BPD > 97%, AC 80%, FL 48%. Weekly NSTs are currently ordered, but may discontinue until 32 weeks if BPs normal #BMI 46.1 A1C 5.2% Declines nutrition referral. Met with cardiac cath lab technologist through [facility] recently Daily baby aspirin starting at 12 weeks to reduce risk of preeclampsia. Anesthesia referral completed Early GDM testing 16-20 weeks: passed. Repeat at 28 weeks: negative BPP and/or NST starting at 32 weeks Growth US 32-36 weeks Level 2 US 10/20/2023: No anomalies seen. Growth parameters consistent with established dates. Amniotic fluid normal. Cervix appears long and closed. Follow-up US with [facility] 12/01/23: Normal fluid, EFW 46%, AC 67%, normal anatomy. [facility] recommendations: Growth ultrasound at 28 and 34 weeks: ordered for 29 weeks Weekly testing starting at 34 weeks (currently ordered for 30 weeks as above) #Declines pap at first OB. Plan for pap. #Varicella nonimmune. Recommend vaccine. #Ongoing tachycardia. CBC, TSH, EKG on 10/08/23. EKG: sinus tachy, otherwise normal. Hgb: 12.5. TSH: 1.38. Consider cardiology referral if she becomes symptomatic. #Suspected macrosomia. EFW >97% at 32 weeks. Testing negative for GDM. 36 weeks: BPD >97%, HC >97%, AC >97%, FL 49.3%, EFW >97%, 3803g, 8#6oz # GBS positive # mild polyhydramnios by SDP, 9.5 cm. ALCIDES 15.91 cm BPP with the ALCIDES at 37 weeks: normal Ultrasounds: 01/16/24 = 32 weeks: cephalic, SDP 5.5, BPP 8/8, EFW 2501 g > 97%, BPD >97%, HC 95%, AC 95.7%, FL 94.5%. Covid: completed, not up to date with booster. Recommended. Declines Flu: never gets flu vaccine due to egg allergy. TDAP: 01/01/2024 Mat 21: Negative, girl! OB - Problem Based A/P Additional Plan (1) Chronic hypertension with superimposed pre-eclampsia: Problem details: - Diagnosed based on BP above baseline. P/C ratio 0.0 on 02/18/24 Status: Acute (2) Chronic hypertension: Status: Acute (3) Lactating mother: Status: Acute (4) care and examination immediately after delivery: Status: Acute (5) Morbid obesity with body mass index (BMI) of 45.0 to 49.9 in adult: Status: Acute (6) Severe pre-eclampsia: Status: Acute Plan Ms. Kapadia is a 23yo admitted on PPD5 for superimposed preeclampsia with severe features. She was seen today for are in BP check, where she had sustained severe range blood pressures and report of intermittent chest pain (absent at present.) She was transferred to the [facility] center, where blood pressures were found to be in the mild range. Stat HELLP labs were obtained, significant for new transaminitis at 2 times the upper limit of normal. Magnesium sulfate for seizure prophylaxis was started. Nifedipine 30mg XL daily was started for BP control. - Admit to - Diligent blood pressure monitoring, plan to treat sustained severe range blood pressures with IV antihypertensives - Start nifedipine XL 30 mg daily, titrate as needed - Strict I/Os - Serial HELLP labs q.6h while on Mag - Continue magnesium sulfate for 24 hours - VTE prophylaxis with SCDs and Lovenox 40 mg daily - Routine and cares Reviewed anticipated hospitalization for 2 nights for make an blood pressure optimization. Patient expressed understanding and is agreeable to plan. OB Exam Physical Exam Vital signs: Temp Pulse Resp BP Pulse Ox O2 Del Method 97.8 F 89 16 140/91 H 99 Room Air 02/25/24 12:24 02/25/24 15:13 02/25/24 15:13 02/25/24 15:13 02/25/24 15:13 02/25/24 15:13 Narrative: General: Alert and oriented, in no acute distress Heart: Regular rate and rhythm, no rubs murmurs or gallops Lungs: Clear to posterior auscultation throughout. No wheezes, rales or crackles. Abdomen: Soft, non distended and nontender throughout. No rebound or guarding. Extremities: 3+ pitting edema noted bilaterally.
[2024-02-25 18:41] LABS: Hematocrit 36.9 % (33.0-51.0); Hemoglobin* 12.2 gm/dL (12.0-16.0); Mean Corpuscular HGB Conc 33 gm/dL (32-36); Mean Corpuscular Hemoglobin 28 pg (26-34); Mean Corpuscular Volume 84 fL (80-100); Platelet Count* 382 K/uL (140-440); Red Blood Count 4.38 m/uL (4.00-5.20); White Blood Count* 10.24 K/uL (4.50-11.00)
[2024-02-25 18:50] LABS: Slide Review Reflex No
[2024-02-25 18:59] LABS: Aspartate Amino Transferase* 59 U/L (12-35); Creatinine* 0.6 mg/dL (0.5-1.5); Estimated Glomerular Filt Rate 131 ml/min
[2024-02-25 19:00] LABS: Alanine Aminotransferase* 75 U/L (4-35); Blood Urea Nitrogen* 13 mg/dL (5-24)
[2024-02-25 19:34] LABS: Troponin I* < 0.01 ng/mL (0.01-0.04)
[2024-02-25 19:36] LABS: Magnesium* 4.6 mg/dL (1.5-2.6)
[2024-02-25 19:37] LABS: Chloride* 112 mmol/L (96-114)
[2024-02-25 19:38] LABS: Potassium* 3.6 mmol/L (3.6-5.1); Sodium* 140 mmol/L (135-149)
[2024-02-25 19:40] LABS: Alanine Aminotransferase* 75 U/L (4-35); Alkaline Phosphatase* 115 U/L (40-150); Anion Gap 6 mEq/L (7-15); Aspartate Amino Transferase* 58 U/L (12-35); Bilirubin Total* 0.5 mg/dL (0.1-1.5); Blood Urea Nitrogen* 13 mg/dL (5-24); Carbon Dioxide* 22 mmol/L (20-32); Creatinine* 0.6 mg/dL (0.5-1.5); Estimated Glomerular Filt Rate 131 ml/min; Glucose* 95 mg/dL (60-115); Total Protein* 7.4 g/dL (6.0-8.3)
[2024-02-25 19:41] LABS: Calcium* 8.1 mg/dL (8.4-10.6)
[2024-02-26] VITALS (14 sets, daily range): BP systolic 117–143; BP diastolic 77–87; PULSE 91–103; RESP 16–18; TEMP 36.5–37.2; O2SAT 97–98
[2024-02-26] MEDS: ACETAMINOPHEN 500 MG TABLET 1000 MG PO ×2 (00:59→13:23)
[2024-02-26] MEDS: LACTATED RINGERS 1000 ML 1,000 ML 75 ML IV (01:02)
[2024-02-26 01:04] LABS: Hematocrit 36.1 % (33.0-51.0); Hemoglobin* 11.8 gm/dL (12.0-16.0); Mean Corpuscular HGB Conc 33 gm/dL (32-36); Mean Corpuscular Hemoglobin 28 pg (26-34); Mean Corpuscular Volume 85 fL (80-100); Platelet Count* 356 K/uL (140-440); Red Blood Count 4.27 m/uL (4.00-5.20); White Blood Count* 9.75 K/uL (4.50-11.00)
[2024-02-26 01:10] LABS: Slide Review Reflex No
[2024-02-26 01:25] LABS: Alanine Aminotransferase* 67 U/L (4-35); Aspartate Amino Transferase* 51 U/L (12-35); Blood Urea Nitrogen* 11 mg/dL (5-24); Creatinine* 0.6 mg/dL (0.5-1.5); Estimated Glomerular Filt Rate 131 ml/min
[2024-02-26 01:32] LABS: Magnesium* 5.4 mg/dL (1.5-2.6)
[2024-02-26 06:39] LABS: Hematocrit 39.2 % (33.0-51.0); Hemoglobin* 12.7 gm/dL (12.0-16.0); Mean Corpuscular HGB Conc 32 gm/dL (32-36); Mean Corpuscular Hemoglobin 28 pg (26-34); Mean Corpuscular Volume 85 fL (80-100); Platelet Count* 364 K/uL (140-440); White Blood Count* 8.29 K/uL (4.50-11.00)
[2024-02-26 06:46] LABS: Slide Review Reflex No
[2024-02-26 07:00] LABS: Alanine Aminotransferase* 74 U/L (4-35); Aspartate Amino Transferase* 52 U/L (12-35); Blood Urea Nitrogen* 9 mg/dL (5-24); Creatinine* 0.6 mg/dL (0.5-1.5); Estimated Glomerular Filt Rate 131 ml/min
--- NOTE | 2024-02-26 07:50 | PM.OBPNVD1 ---
OB - PN:Subj Subjective Time Seen by Provider: 07:50 Date Seen: 02/26/24 Patient comments OB post-: pain well controlled and other feeding status: expressed and bottle feeding Narrative: Feeling tired on Magnesium but is otherwise doing well. Pumping and giving breast milk and formula by bottle. LFt's have stabilized. Diuresing. BP under good control with Nifedipine XL 30mg daily. OB - PN: Obj Exam Physical Exam: Vital signs: Temp Pulse Resp BP Pulse Ox O2 Del Method 98 F 92 18 126/87 97 Room Air 02/26/24 06:55 02/26/24 06:55 02/26/24 06:55 02/26/24 06:55 02/26/24 06:55 02/26/24 06:55 Narrative: General: Pleasant, no acute distress. Vital signs: per EMR Chest: Clear to auscultation bilaterally. Abdomen: Soft, NT/ND. Normal Bowel sounds throughout. Fundus: Firm 3cm below the umbilicus in the midline. Extremities: SCD's in place. OB - PN: Obj Data Labs Labs: Laboratory Results - last 24 hr 02/25/24 02/25/24 02/25/24 11:59 18:00 18:30 WBC 9.02 10.24 RBC 4.42 4.38 Hgb 12.3 12.2 Hct 37.3 36.9 MCV 84 84 MCH 28 28 MCHC 33 33 Plt Count 358 382 Sodium 140 Potassium 3.6 Chloride 112 Carbon Dioxide 22 Anion Gap 6 L BUN 15 13 13 Creatinine 0.7 0.6 0.6 Estimated GFR 126 131 131 Glucose 95 Uric Acid 4.2 Calcium 8.1 L Magnesium 4.6 H* Total Bilirubin 0.5 AST 63 H 59 H 58 H ALT 74 H 75 H 75 H Alkaline Phosphatase 115 Troponin I Total Protein 7.4 Albumin 4.0 02/25/24 02/26/24 02/26/24 18:55 01:00 06:10 WBC 9.75 8.29 RBC 4.27 4.60 Hgb 11.8 L 12.7 Hct 36.1 39.2 MCV 85 85 MCH 28 28 MCHC 33 32 Plt Count 356 364 Sodium Potassium Chloride Carbon Dioxide Anion Gap BUN 11 9 Creatinine 0.6 0.6 Estimated GFR 131 131 Glucose Uric Acid Calcium Magnesium 5.4 H* 6.0 H* Total Bilirubin AST 51 H 52 H ALT 67 H 74 H Alkaline Phosphatase Troponin I < 0.01 L Total Protein Albumin OB - PN: A/P Delivery Assessment and Plan (1) Chronic hypertension with superimposed pre-eclampsia: Start date: 02/25/24 Start time: 12:00 Problem details: - Diagnosed based on BP above baseline and LFT elevation. P/C ratio 0.0 on 02/18/24 Status: Acute Assessment and Plan: 1. Continue magnesium until noon today. 2. One more set of labs before magnesium is discontinued. 3. Monitor BP for 24 hours after magnesium is discontinued before discharge home. (2) Chronic hypertension: Status: Acute (3) Lactating mother: Status: Acute (4) care and examination immediately after delivery: Status: Acute (5) Morbid obesity with body mass index (BMI) of 45.0 to 49.9 in adult: Status: Acute (6) Severe pre-eclampsia: Status: Acute
[2024-02-26] MEDS: MAGNESIUM Infusion 40 GM/1,000 ML IV.SOLN IVPB (08:26)
[2024-02-26] MEDS: NIFEdipine 30 MG TAB.ER.24 PO (08:43)
[2024-02-26 12:05] LABS: Hematocrit 37.2 % (33.0-51.0); Mean Corpuscular HGB Conc 32 gm/dL (32-36); Mean Corpuscular Hemoglobin 27 pg (26-34); Mean Corpuscular Volume 85 fL (80-100); Platelet Count* 380 K/uL (140-440); White Blood Count* 7.92 K/uL (4.50-11.00)
[2024-02-26 12:18] LABS: Creatinine* 0.6 mg/dL (0.5-1.5); Estimated Glomerular Filt Rate 131 ml/min
[2024-02-26 12:19] LABS: Alanine Aminotransferase* 65 U/L (4-35); Aspartate Amino Transferase* 46 U/L (12-35); Blood Urea Nitrogen* 8 mg/dL (5-24)
[2024-02-26 12:29] LABS: Magnesium* 5.9 mg/dL (1.5-2.6)
[2024-02-26 12:30] LABS: Slide Review Reflex No
[2024-02-26] MEDS: ENOXAPARIN 40 MG/0.4 ML INJ SUBCUT (13:23)
[2024-02-27] VITALS: BP 128/84; PULSE 96; RESP 16; TEMP 36.8; O2SAT 98
[2024-02-27 04:00] VITALS: BP 118/84; PULSE 92; RESP 17; TEMP 36.8; O2SAT 98
[2024-02-27 07:47] VITALS: BP 124/86; PULSE 84; RESP 16; TEMP 36.6; O2SAT 98
--- NOTE | 2024-02-27 08:12 | PM.OBDSVD1 ---
DS: Providers Provider Time Seen by Provider: 08:12 Date Seen: 02/27/24 Date of admission: 02/25/24 11:38 Primary care physician: Not a Local Provider Admitting Clinician: Niesha Velez MD Attending Physician on discharge: Grace Card MD Date of Discharge: 02/27/24 DS: Diagnosis Discharge Diagnosis (1) Chronic hypertension with superimposed pre-eclampsia: Status: Acute Problem details: - Diagnosed based on BP above baseline and LFT elevation. P/C ratio 0.0 on 02/18/24 - Readmission on 02/25/24 due to preeclampsia with severe features. Exam Narrative: Exam Narrative: VITAL SIGNS: As noted above. GENERAL APPEARANCE: Alert, cooperative female in no acute distress. MOOD & AFFECT: Normal. HEART: Regular rate and rhythm without murmurs. LUNGS: Lungs are clear to auscultation bilaterally. No crackles, wheezes, or rhonchi. ABDOMEN: Soft, non-distended and nontender. Well contracted uterus. EXTREMITIES: SCDs in place, bilateral pitting edema +1 noted on b/l feet. Well perfused. Nontender. NEURO: Intact. Const: Vital Signs, click to edit/add: Vital Signs - 24 hr 02/26/24 10:04 02/26/24 11:06 02/26/24 11:26 Temperature Pulse Rate [Pulse Oximeter] 97 Respiratory Rate 16 Blood Pressure [Le ft Arm] 130/84 143/86 H 120/83 Pulse Oximetry 97 Oxygen Delivery Me thod Room Air 02/26/24 12:19 02/26/24 13:14 02/26/24 13:32 Temperature 98.0 F Pulse Rate [Pulse Oximeter] 103 H Respiratory Rate 16 Blood Pressure [Le ft Arm] 117/77 142/84 H 128/86 Pulse Oximetry 98 Oxygen Delivery Me thod Room Air 02/26/24 15:41 02/26/24 19:44 02/26/24 20:24 Temperature 98.5 F 99 F 99 F Pulse Rate [Pulse Oximeter] 103 H 100 Respiratory Rate 16 16 Blood Pressure [Le ft Arm] 127/84 128/85 Pulse Oximetry 98 98 Oxygen Delivery Me thod Room Air Room Air 02/27/24 00:00 02/27/24 04:00 02/27/24 07:47 Temperature 98.2 F 98.3 F 97.9 F Pulse Rate [Pulse Oximeter] 96 92 84 Respiratory Rate 16 17 16 Blood Pressure [Le ft Arm] 128/84 118/84 124/86 Pulse Oximetry 98 98 98 Oxygen Delivery Me thod Room Air Room Air Room Air OB - DS: Summary Hospital Course Hospital Course: The patient is a 23 year old G 1 P 1001 who was re admitted to the Center on 02/25/24 due to CHTN with superimposed preeclampsia with severe features on her PPD 5. Received magnesium sulfate infusion for 24 hours, has completed 24 hours of observation after magnesium infusion and has remained stable. Blood pressures have been normal on Nifedipine ER 30mg daily. No [employer] irritability symptoms. Normal urine output. She is breast feeding. No complaints otherwise. Peripartum Data Infant delivery method: Vaginal complications: other (Readmission due to CHTN with superimposed preeclampsia with severe features.) Infant Gender: Female Discharge Plan: Home Status at Discharge Functional status at discharge: independent ambulation Overall status at discharge: patient is progressing back to baseline Time Spent with Patient Time attestation: Total time spent providing and/or coordinating discharge services: Time spent: Less than 30 minutes Discharge Plan Discharge Disposition: Home, Self-Care Date of Admission: 02/25/24 11:38 Attending Provider on Discharge: Grace Card Primary Care Provider: Provider,Not a Local Condition: Stable Anticipated Discharge Date/Time: 02/27/24 12:00 Discharge Medications: New nifedipine 30 mg Tablet Extended Release 24hr 30 mg PO DAILY Qty: 60 0RF Continued DHA 200 mg capsule 200 mg PO DAILY melatonin 10 mg capsule 10 mg PO ONCE PRN calcium carbonate [Tums] 200 mg calcium (500 mg) tablet,chewable 200 mg PO BID acetaminophen 500 mg Tablet 1,000 mg PO Q6H PRN30 Days Qty: 30 1RF Dermoplast (with menthol) 20-0.5 % Aerosol 1 spray topical QID PRN30 Days Qty: 78 0RF docusate sodium 100 mg Capsule 100 mg PO DAILY 30 Days Qty: 30 0RF ibuprofen 600 mg Tablet 600 mg PO Q6H PRN30 Days Qty: 60 0RF Lanolin (HPA) 100 % Cream 1 applic topical Q1H PRN30 Days Qty: 21 0RF simethicone 80 mg Tablet,Chewable 80 - 160 mg PO Q4H PRN (Reason: gas) 30 Days Qty: 60 0RF Discontinued magnesium citrate 125 mg capsule 125 mg PO ONCE Discharge Orders: Discharge Order (Routine); Ordered 02/27/24 Ordered By: Grace Card Patient Education: OB Vaginal/Breast Feeding Additional Instructions: Measure blood pressures at home twice a day. Notify clinic if there are blood pressures persistently more than 150 systolics, 100s diastolics or if any symptoms such as headaches that do not go away with pain medication, visual changes such as dark spots in vision, pain in the upper abdomen-that moves towards the upper right side. Notify clinic if there are blood pressures persistently less than 90 seconds systolics, 50s diastolics or if there is any associated symptoms such as lightheadedness, dizziness, shortness of breath, heart palpitations. Follow-up in clinic in 3-5 days after discharge for blood pressure check, review of antihypertensive medication regimen. Follow-up in 6 weeks in clinic for regular visit. Activity Level: No strenuous activity Discharge Diet: Regular Follow Up Appointments: Provider,Not a Local [Primary Care Provider] - Forms: [employer] Info Instructions
[2024-02-27] MEDS: NIFEdipine 30 MG TAB.ER.24 PO (08:29)
[2024-02-27 12:00] VITALS: BP 130/84; PULSE 98; RESP 16; TEMP 36.8; O2SAT 98
== END 2024-02-27 12:30 | disposition home or self-care (01) | DRG 776 ==
PROVIDERS: Admitting Provider Obstetrics & Gynecology; Visit Provider Obstetrics & Gynecology
DX: O11.5 Pre-existing hypertension with pre-eclampsia, complicating the puerperium (principal); O10.93 Unspecified pre-existing hypertension complicating the puerperium; O99.215 Obesity complicating the puerperium; E66.01 Morbid (severe) obesity due to excess calories; R07.9 Chest pain, unspecified
CPT/HCPCS: 36415; 80053; 82565; 83735; 84450; 84460; 84484; 84520; 84550; 85027; 93005; A9270; J1650; J3475; J7120

== ENCOUNTER 2024-03-31 12:20 | Outpatient (CLI) | payer OTHER, SELFPAY | END 2024-03-31 12:21 | disposition home or self-care (01) | LOC: NFLDREF 12:20 | PROVIDERS: Visit Provider Registered Nurse | DX: Z39.2 Encounter for routine postpartum follow-up (principal) | CPT/HCPCS: 84702 ==

== ENCOUNTER 2024-04-06 11:35 | Outpatient (CLI) | payer OTHER, SELFPAY ==
[2024-04-06 18:10] LABS: Chlamydia DNA Amplified* NOT DETECTED (No Detected); GC DNA Amplified* NOT DETECTED (No Detected)
== END 2024-04-06 11:36 | disposition home or self-care (01) ==
LOC: NFLDREF 11:36
PROVIDERS: Visit Provider Registered Nurse
DX: N89.8 Other specified noninflammatory disorders of vagina (principal)
CPT/HCPCS: 84702; 87491; 87591

== ENCOUNTER 2024-04-26 18:06 | Outpatient (CLI) | payer OTHER, SELFPAY | END 2024-04-26 18:07 | disposition home or self-care (01) | PROVIDERS: Visit Provider Registered Nurse | DX: R10.9 Unspecified abdominal pain (principal); I10 Essential (primary) hypertension; E66.01 Morbid (severe) obesity due to excess calories | CPT/HCPCS: 80053; 83690 ==

== ENCOUNTER 2024-09-02 16:37 | Outpatient (CLI) | payer OTHER, SELFPAY | END 2024-09-02 16:38 | disposition home or self-care (01) | LOC: NFLDREF 16:39 | PROVIDERS: PCP Registered Nurse; Visit Provider Registered Nurse | DX: I10 Essential (primary) hypertension (principal) | CPT/HCPCS: 80048 ==

== ENCOUNTER 2025-08-29 10:52 | Outpatient (CLI) | payer OTHER, SELFPAY | END 2025-08-29 10:53 | disposition home or self-care (01) | PROVIDERS: PCP Family Medicine; Visit Provider Family Medicine | DX: I10 Essential (primary) hypertension (principal); Z13.6 Encounter for screening for cardiovascular disorders; E66.01 Morbid (severe) obesity due to excess calories; Z68.43 Body mass index [BMI] 50.0-59.9, adult | CPT/HCPCS: 80053; 80061; 84443 ==